=== PATIENT | male | born 1950 | race Caucasian/White ===

== ENCOUNTER 2023-09-21 13:15 | Outpatient (CLI) | payer MEDICARE, OTHER ==
[2023-09-21 15:35] VITALS: BP 146/73; PULSE 66; RESP 18; TEMP 97.4; O2SAT 99
== END 2023-09-21 15:14 | disposition home or self-care (01) ==
LOC: CSU 13:15 → EDSTATUS 09-25 06:15
PROVIDERS: ATTEND Nurse Practitioner Psychiatric/Mental Health
DX: F20.9 Schizophrenia, unspecified (principal); G31.84 Mild cognitive impairment of uncertain or unknown etiology
CPT/HCPCS: 90839; 90840

== ENCOUNTER 2023-11-19 23:36 | Emergency (ER) | payer MEDICARE, OTHER ==
[~2023-11-19] VITALS: Ht 180.3 cm; Wt 88.0 kg
[2023-11-20] MEDS: SODIUM CHLORIDE 0.9% 1,000 ML IV ONE (01:06)
[2023-11-20 01:08] LABS: BASOPHILS % (AUTO) 0.9 % (0.0-2.0); EOSINOPHILS % (AUTO) 0.5 % (1.0-6.0); HEMATOCRIT 25.7 % (41-53); HEMOGLOBIN 8.3 g/dL (13.5-17.5); LYMPHOCYTES % (AUTO) 13.6 % (22.0-44.0); MEAN CORPUSCULAR HEMOGLOBIN 25.3 pg (26.0-34.0); MEAN CORPUSCULAR HGB CONC 32.2 G/dL (31.0-37.0); MEAN CORPUSCULAR VOLUME 79 fL (80-100); MONOCYTES # (AUTO) 0.9 K/uL (0.1-1.0); MONOCYTES % (AUTO) 12.9 % (2.0-9.0); NEUTROPHILS # (AUTO) 5.3 K/uL (1.8-7.7); NEUTROPHILS % (AUTO) 72.1 % (40.0-70.0); PLATELET COUNT (AUTO) 340 K/uL (150-450); RED BLOOD CELL COUNT(AUTO) 3.27 MIL/uL (4.50-5.90); RED CELL DISTRIBUTION WIDTH 19.2 % (11.5-14.5); WHITE BLOOD COUNT (AUTO) 7.3 K/uL (4.5-11.0)
[2023-11-20 01:16] LABS: ANION GAP 11 mmol/L (8-16); CALCIUM, TOTAL 8.7 mg/dL (8.8-10.5); CARBON DIOXIDE 23 mmol/L (22-29); CHLORIDE 100 mmol/L (98-107); CREATININE 0.86 mg/dL (0.60-1.30); GLOMERULAR FILTR. RATE CALC > 60 mL/min (>60); GLUCOSE,RANDOM 88 mg/dL (70-110); POTASSIUM 4.4 mmol/L (3.5-5.1); SODIUM SERUM 134 mmol/L (136-145); UREA NITROGEN, BLOOD 13 mg/dL (7-18)
[2023-11-20 01:22] LABS: ALANINE AMINOTRANSFERASE 14 U/L (12-78); ALBUMIN 2.5 g/dL (3.4-5.0); ALKALINE PHOSPHATASE 125 U/L (46-116); ASPARTATE AMINOTRANSFERASE 70 U/L (15-37); BILIRUBIN,TOTAL 0.5 mg/dL (0.1-1.0); CREATINE KINASE, TOTAL ONLY 42 U/L (39-308); LIPASE 23 U/L (16-77); TOTAL PROTEIN, SERUM 6.3 g/dL (6.4-8.2)
[2023-11-20 01:23] LABS: TROPONIN I-HIGH SENSITIVITY 12 ng/L (<76)
[2023-11-20 01:24] LABS: INR 1.1 (0.9-1.1); PROTHROMBIN TIME 11.4 SEC (9.4-11.6)
[2023-11-20 01:29] LABS: B-TYPE NATRIURETIC PEPTIDE 135 pg/mL (0-100)
[2023-11-20 02:35] LABS: APPEARANCE,URINE CLEAR (CLEAR); BILIRUBIN,URINE NEGATIVE (NEGATIVE); COLOR,URINE LIGHT YELLOW (YELLOW); GLUCOSE, URINE (UA) NEGATIVE (NEGATIVE); KETONES,URINE NEGATIVE (NEGATIVE); LEUKOCYTE ESTERASE ,URINE NEGATIVE (NEGATIVE); NITRATE,URINE NEGATIVE (NEGATIVE); OCCULT BLOOD,URINE NEGATIVE (NEGATIVE); PROTEIN,URINE NEGATIVE (NEGATIVE); SPECIFIC GRAVITIY, URINE 1.009 (1.003-1.030); UROBILINOGEN,URINE <=1.0 mg/dL (<=1.0)
[2023-11-20] MEDS: FAMOTIDINE 20 MG/2 ML VIAL IVP ONE (03:53)
[2023-11-20] MEDS: HYDROmorphone HCL 2 MG/ML SYRINGE IVP ONE (03:53)
[2023-11-20 07:06] LABS: COVID AG,FIA SOURCE NASAL SWAB
[2023-11-20 07:20] VITALS: BP 140/54; PULSE 60; RESP 16; TEMP 98.3; O2SAT 96
[2023-11-20] MEDS ORDERED: ONDANSETRON HCL 4 MG/2 ML VIAL IVP PRN (07:45)
[2023-11-20] MEDS ORDERED: OxyCODONE HCL 5 MG IR TABLET PO PRN (07:45)
[2023-11-20] MEDS ORDERED: 0.9% SODIUM CHLORIDE 10 ML SYRINGE IVP PRN (07:45)
[2023-11-20] MEDS ORDERED: MORPHINE SULFATE 2 MG/ML SYRINGE IVP PRN (08:00)
[2023-11-20 08:02] LABS: SARS-COV2 (COVID) ANTIGEN,FIA Negative (Negative)
[2023-11-20] MEDS: MORPHINE SULFATE 30 MG ER TABLET PO SCH (08:25)
[2023-11-20] MEDS ORDERED: POLYETHYLENE GLYCOL 3350 17 GM PACKET PO SCH (09:00)
[2023-11-20] MEDS ORDERED: ENOXAPARIN SODIUM 40 MG/0.4 ML PF SYRINGE SQ SCH (09:00)
== END 2023-11-20 08:30 | disposition home or self-care (01) ==
LOC: EMS 23:37 → EDBEDREQ 11-20 05:21 → EDBEDREQTM 11-20 05:41 → EDH 11-20 08:25 → UNDOADMIN 11-20 08:25 → UNDODISIN 11-20 08:26
DX: R10.9 Unspecified abdominal pain (principal); E11.9 Type 2 diabetes mellitus without complications; F20.9 Schizophrenia, unspecified; I10 Essential (primary) hypertension; F17.210 Nicotine dependence, cigarettes, uncomplicated; Z20.822 Contact with and (suspected) exposure to COVID-19
CPT/HCPCS: 99285; 74176; 96374; 71045; 96361; 96375; 87426; 80053; 81003; 82550; 83690; 83880; 84484; 85025; 85610; 85730; 36415; 93005; J1650; J3490; J1171; J7030; G0378